=== PATIENT | male | born 1995 | race Caucasian/White ===

== ENCOUNTER 2024-07-09 16:47 | Emergency (ER) | payer SELFPAY ==
[2024-07-09 16:59] VITALS: BP 111/71
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
== END 2024-07-09 18:09 | disposition home or self-care (01) ==
LOC: EMR 16:47
PROVIDERS: EMERGENCY PHYSICIAN Emergency Medicine; FAMILY PHYSICIAN Family Medicine
DX: Z04.89 Encounter for examination and observation for other specified reasons (principal); R51.9 Headache, unspecified
CPT/HCPCS: 99282